=== PATIENT | female | born 1945 | race Caucasian/White ===

== ENCOUNTER 2018-02-28 06:50 | Day surgery (SDC) | payer MEDICARE, OTHER ==
[~2018-02-28] VITALS: Ht 160 cm; Wt 88.9 kg
--- NOTE | ~2018-02-28 | OR ---
[facility] [address] [place], [place] [address] Draft DATE OF OPERATION: 02/28/2018 SURGEON: Holland Valenzuela DPM PREOPERATIVE DIAGNOSES: 1. Hammertoe, left 2nd digit. 2. 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 POSTOPERATIVE DIAGNOSES: 1. Hammertoe, left 2nd digit. 2. 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 REEL STRIPPER SURGEON: Lauro Roberson DPM. ANESTHESIA: IV general with local block, left foot. COMMERCIAL RELIEF DRIVER: Lizbeth Simental. SPECIMEN SENT TO PATHOLOGY: None. PROCEDURES PERFORMED: 1. Hammertoe correction with PIPJ arthrodesis, left 2nd digit. 2. Tenotomy/capsulotomy, left 2nd MPJ. DESCRIPTION OF PROCEDURE: The patient was brought to the operating room and placed on the table in the supine position. Anesthesia department administered IV sedation, after which a local block was given to the left foot using a total of 8 mL 1:1 mixture of 2% lidocaine plain and 0.5% ropivacaine plain. The left leg and foot were then prepped and draped in the usual sterile manner and an Esmarch was used for hemostasis. Procedure #1: Hammertoe correction with PIPJ arthrodesis, left 2nd digit. Attention was initially directed to the dorsal PIPJ left 2nd digit, where a transverse elliptical incision was made. The incision was initially full-thickness through the dermis, removing the ellipse of skin. A transverse tenotomy/capsulotomy was then made PATIENT NAME: DIMITRIFLORY Sahu OPERATIVE REPORT DATE OF : 45 REPORT #: [id number] PHYSICIAN: HOLLAND VALENZUELA DPM PCP: GARCIA QUIÑONES REPORT IS CONFIDENTIAL AND NOT TO BE RELEASED WITHOUT AUTHORIZATION [facility] [address] [place], [place] [address] Draft to open the PIPJ. The soft tissues were then reflected to expose the head of the proximal phalanx, which was then resected using power instrumentation. At this time hand instrumentation was used to smooth the remaining bone. A K-wire was then used to drill into the proximal phalanx down the shaft of the phalanx for placement of an implant. The K-wire was then passed into the intermediate phalanx exiting the distal aspect of the toe for the distal portion of the implant. Cartilage was then denuded from the base of the intermediate phalanx leaving a flat surface of raw bone. The implant was then placed into the intermediate phalanx and extended proximally into the hole already created in the proximal phalanx. This appeared to provide stable fixation with good bony approximation at the fusion site. Procedure #2: At this point, the tightness of the joint at the MTPJ was fully appreciated, noted that it was necessary for both a capsulotomy and tenotomy to be performed. A tenotomy was performed slightly proximal to the joint at the about 2 cm proximal to the joint level. The extensor tendon was ligated the joint capsule dorsally and medially, then released due to a medial deviation to the toe, this would allow correction in transverse plane as well as sagittal plane. The joint reassessed and any tight fibers after the joint released at this time and adequate correction at the MPJ was obtained. Surgical site at the toe irrigated with copious amounts of normal saline. The percutaneous tenotomy and capsulotomy sites on the foot were small stab incisions and did not need irrigation. Surgical site was then closed with 4-0 Vicryl for the tendon and capsule closure at the dorsal PIPJ, left 2nd digit. Then 5-0 nylon suture used for closure of the tenotomy/capsulotomy incisions and the skin incision at the dorsal PIPJ. The surgical site then dressed with Adaptic, Betadine-soaked gauze, dry gauze, Kerlix fluffs, Flexicon, and Coban for mild compression, as well as to splint the position to the toe. The patient tolerated the procedure and the anesthesia well and left the operating room with vital signs stable and vascular status intact to the left foot as evidenced by hyperemia with removal of the Esmarch. INTRAOPERATIVE COMPLICATIONS: None. ESTIMATED BLOOD LOSS: Less than 5 mL. PATIENT NAME: FLORY MOSLEY OPERATIVE REPORT DATE OF : 45 REPORT #: [id number] PHYSICIAN: HOLLAND VALENZUELA DPM PCP: GARCIA QUIÑONES REPORT IS CONFIDENTIAL AND NOT TO BE RELEASED WITHOUT AUTHORIZATION [address] [address] [place] DAVID Nassar/MAGNOL /[id number] Copies: ~ PATIENT NAME: FLORY MOSLEY OPERATIVE REPORT DATE OF : 45 REPORT #: [id number] PHYSICIAN: HOLLAND VALENZUELA DPM PCP: GARCIA QUIÑONES REPORT IS CONFIDENTIAL AND NOT TO BE RELEASED WITHOUT AUTHORIZATION
[~2018-02-28 06:50] MED LIST: ASPIR-LOW81 MG PO; ONCE DAILY1 EACH PO; VITAMIN D31000 UNI1 PO
--- NOTE | 2018-02-28 08:04 | NUR ---
requests warm blanket and given.
--- NOTE | 2018-02-28 11:02 | NUR ---
02/28/18 1102 Kimberley Ireland 1049 PT ARRIVED TO PACU ON 6L VIA MASK, RESP EVEN AND UNLABORED. PT REACTIVE TO VERBAL STIMULI. 1055 PT TALKING AND DENIES PAIN AND NAUSEA. XRAY CALLED. 1100 PLAN OF CARE DISSCUSSED WITH PT. MD AT BEDSIDE.
== END 2018-02-28 11:45 | disposition home or self-care (01) ==
LOC: DS 06:50 → OPS 06:50 → DS 09:45 → OPS 09:45
PROVIDERS: Podiatrist Foot Surgery
PROC: 0LNW0ZZ Release Left Foot Tendon, Open Approach (ICD-10-PCS; 2018-02-28)
PROC: 0SNN0ZZ Release Left Metatarsal-Phalangeal Joint, Open Approach (ICD-10-PCS; 2018-02-28)
PROC: 0SGQ0ZZ (ICD-10-PCS; principal; 2018-02-28 09:45)
DX: M20.42 Other hammer toe(s) (acquired), left foot (principal); M24.575 Contracture, left foot; Z88.8 Allergy status to other drugs, medicaments and biological substances; Z79.82 Long term (current) use of aspirin; Z79.899 Other long term (current) drug therapy; Z87.891 Personal history of nicotine dependence
CPT/HCPCS: 73630; J0690; J1100; J2250; J2405; J2704; J2795; J3010; J7120

== ENCOUNTER 2021-03-11 21:14 | Emergency (ER) | payer MEDICARE, OTHER ==
[~2021-03-11] VITALS: Ht 160 cm; Wt 84.4 kg
[2021-03-12] MEDS ORDERED: POTASSIUM CHLO20 ME1 PO (02:12)
[2021-03-12] MEDS ORDERED: CEPHALEXIN500 MG PO (02:12)
== END 2021-03-12 03:45 | disposition home or self-care (01) ==
LOC: ED 21:14
DX: N39.0 Urinary tract infection, site not specified (principal); R41.82 Altered mental status, unspecified; D16.4 Benign neoplasm of bones of skull and face; E87.6 Hypokalemia; Q30.9 Congenital malformation of nose, unspecified; Z87.891 Personal history of nicotine dependence; Z88.8 Allergy status to other drugs, medicaments and biological substances; Z79.899 Other long term (current) drug therapy
CPT/HCPCS: 70450; 73502; 80053; 81001; 85025; 87088; 96365; 96366; 96367; 99285-25; J0696; J3480; J7040